=== PATIENT | male | born 1975 | race Two or more races ===

== ENCOUNTER 2023-10-21 21:20 | Emergency (ER) | payer OTHER ==
[~2023-10-21] VITALS: Ht 185.4 cm; Wt 120.0 kg
[2023-10-21 21:30] VITALS: BP 138/93; PULSE 75; RESP 16; TEMP 97.9
[2023-10-21] MEDS ORDERED: MUPI2OIN2 EX (21:44)
[2023-10-21] MEDS ORDERED: DOXY-448 PO (21:44)
[2023-10-21 22:05] LABS: Urine Bacteria NONE SEEN /hpf (None Seen); Urine Blood Negative /uL (Negative); Urine Clarity Clear (Clear); Urine Color Yellow (Yellow); Urine Mucus FEW (None Seen); Urine Protein, UAD TRACE (Negative); Urine Specific Gravity 1.027 (1.001-1.035); Urine Urobilinogen Normal (Negative); Urine WBC 1 /hpf (0 - 3); Urine pH 5.5 (5.0-8.0)
[2023-10-21 22:08] VITALS: O2SAT 97
[2023-10-21 22:38] LABS: Amphetamine Screen, Urine Neg (NEGATIVE); Barbiturate Scree,Urine Neg (NEGATIVE); Benzodiazephine Screen, Urine Neg (NEGATIVE); Cannabinoid Screen, Urine Neg (NEGATIVE); Cocaine Screen, Urine Neg (NEGATIVE); Opiate Scree,Urine Neg (NEGATIVE); Phencyclidine Screen, Urine Neg (NEGATIVE)
[2023-10-25 09:11] LABS: Hepatitis B Surface Antigen Negative (Negative)
[2023-10-25 09:32] LABS: Hepatitis A Ab IgM Negative; Hepatitis B Core IgM Negative
[2023-10-25 09:33] LABS: Hepatitis C Antibody Negative (Negative)
== END 2023-10-21 21:52 | disposition home or self-care (01) ==
LOC: ER 21:20 → EEVIPCON 21:20 → ER 21:52
DX: S61.230A Puncture wound without foreign body of right index finger without damage to nail, initial encounter (principal); W46.1XXA Contact with contaminated hypodermic needle, initial encounter; Y93.89 Activity, other specified; Y92.89 Other specified places as the place of occurrence of the external cause; Y99.8 Other external cause status
CPT/HCPCS: 36415; 80074; 80307; 81001; 86703